=== PATIENT | male | born 1985 | race Caucasian/White ===

== ENCOUNTER → 2021-07-26 16:21 | Outpatient (CLI) | payer OTHER, SELFPAY ==
[2021-07-26 18:44] LABS: COVID19 -Nasal RAPID Negative (Negative)
== END ==
PROVIDERS: Visit Provider Family Medicine Sleep Medicine
DX: Z20.822 Contact with and (suspected) exposure to COVID-19 (principal)
CPT/HCPCS: 87635; C9803

== ENCOUNTER 2021-07-28 07:11 | Day surgery (SDC) | payer OTHER, SELFPAY ==
[2021-07-28] VITALS (9 sets, daily range): BP systolic 119–154; BP diastolic 67–93; PULSE 40–104; RESP 11–19; TEMP 36.2–36.4; O2SAT 95–99; BMI 33.3
--- NOTE | 2021-07-28 | PATH_ITS ---
[facility] Accession Number: [id number] . 01 Material submitted: . PART A: gastrointestinal site - GASTRIC POLYP PART B: esophagus - LOWER THIRD OF ESOPHAGUS . 01 Clinical history: . A: R/O SERRANO'S . 02 Diagnosis: A. Gastric Polyp: Fundic gland polyp. No evidence of Helicobacter organisms on H/E stain. Negative for intestinal metaplasia. Negative for dysplasia or malignancy. . B. Lower Third Esophagus: Squamocolumnar junctional mucosa with no diagnostic abnormality. Negative for intestinal metaplasia. Negative for dysplasia or malignancy. MRV 07/30/2021 1125 Local . 02 Electronically signed: . Xiomara Mosher MD, Pathologist NPI- [id number] . 01 Gross description: . Part A: GASTRIC POLYP: Received in formalin is 2 fragment(s) of negro, soft tissue measuring 0.3 x 0.1 x 0.1 cm submitted entirely in 1 cassette(s) Part B: LOWER THIRD OF ESOPHAGUS: Received in formalin are 2 fragment(s) of negro, soft tissue measuring 0.3 x 0.1 x 0.1 cm to 0.2 x 0.1 x 0.1 cm submitted entirely in 1 cassette(s) /CPE 07/29/2021 1658 Local . 02 Pathologist provided ICD-10: K31.7, K20.90 . 02 CPT . 224801, [id number] Specimen Comment: A courtesy copy of this report has been sent to [phone] Performed at: 01 [facility] [address], [place], [place] [id number] MD Boston Carr MD Phone: [phone] Performed at: 02 [facility] [place] [id number] [place] [id number] MD Patti Armenta MD Phone: [phone]
[2021-07-28] MEDS: SODIUM CHLORIDE 0.9% 1,000 ML 84 ML IV (07:48)
--- NOTE | 2021-07-28 08:14 | PM.HP.1 ---
History of Present Illness History of Present Illness Date Patient Seen: 07/28/21 Time Patient Seen: 08:18 Chief complaint: SDC Narrative: Patient is a very pleasant 36-year-old male who presented for further evaluation of symptoms of gastroesophageal reflux despite PPI therapy. He also describes chronic cough. He states he has had some mild improvement of his symptoms since changing to 40 mg of pantoprazole daily, however he continues to have persistent symptoms. Patient History Medical History (Updated 07/27/21 @ 14:31 by Chio Chaves RN) Cough GERD (gastroesophageal reflux disease) Family & Social History Social History: household members spouse Tobacco & Substance use: Smoking Status Never smoker alcohol intake current alcohol intake frequency a few times a month Substance Use Type does not use Meds Home Medications and Allergies Home Medications Medication Instructions Recorded Confirmed Type pantoprazole 20 mg tablet,delayed 20 - 40 mg PO DAILY 07/27/21 07/28/21 History release Allergies Allergy/AdvReac Type Severity Reaction Status Date / Time No Known Drug Allergies Allergy Verified 07/27/21 14:32 Exam Vital Signs (past 8 hours): - 07/28/21 07:40 Temperature 97.3 F L Pulse Rate 48 L Respiratory Rate 19 Blood Pressure 143/85 H Pulse Oximetry 97 Oxygen Delivery Method Room Air Const General: cooperative, healthy appearing, comfortable, well developed, well groomed and No acute distress Resp Effort & Inspection: normal respiratory effort, able to speak in complete sentences, abnormal respiratory pattern and no audible wheezes Cardio Rate: regular rate Rhythm: regular rhythm Assessment & Plan Assessment & Plan narrative: 1. Chronic cough 2. Symptoms of gastroesophageal reflux despite PPI EGD today, further recommendations to follow Time Spent With Patient Critical Care time: I spent a total of [] minutes of critical care time on this patient's care today; this time is exclusive of procedural time.
--- NOTE | 2021-07-28 08:33 | PM.OP.EGD ---
Operative Date/Time/Diagnoses Date of procedure: 07/28/21 Time of procedure: 08:24 Procedure Notes Procedure in detail: Surgeon: Elvira Kohli DO Procedure: Esophagogastroduodenoscopy with biopsy Preoperative diagnosis: Symptoms of gastroesophageal reflux despite PPI therapy Chronic cough Postoperative diagnosis: [place]-colored mucosa in the lower 3rd of the esophagus biopsy to rule out Escobedo's esophagus Scattered small gastric polyps suspect fundic gland polyps Otherwise unremarkable upper endoscopy Medications: Monitored anesthesia care, see Anesthesia note Preanesthesia Assessment An H and P was performed/updated and the Px?s ASA class is 1. The procedure was discussed in detail with the patient. The potential risks and complications including infection, bleeding, missed lesions, perforation, need for surgery in case of perforation, prolonged hospital stay, and were explained. A brief question and answer period was allotted and once all questions were answered, informed consent was obtained. The patient was brought back to the procedure room and placed on standard monitoring. The patient?s vital signs were monitored continuously throughout the entire procedure. Prior to starting, a timeout was performed to confirm the patient?s identity, allergies, medications, and procedure. Procedure in detail The patient was placed in left lateral decubitus position and a bite block was inserted. The tip of the upper endoscope was placed into the mouth and advanced without difficulty under direct visualization into the esophagus. Esophagus: Z-line 43 cm, 2 tongues of pink salmon-colored mucosa noted biopsied to rule out Escobedo's esophagus Stomach: Scattered small gastric polyps, biopsied Duodenum: Normal-appearing duodenum The patient tolerated the procedure well and will be brought back to the recovery area to be discharged once criteria are met. Complications There were no complications and estimated blood loss was minimal. Recommendations: Resume previous diet Continue outPx medications Follow up pathology results Office follow up as previously scheduled An emergency contact number was given to the patient for any complications related to the procedure
== END 2021-07-28 09:25 | disposition home or self-care (01) ==
LOC: ENDO 07:15
PROVIDERS: PCP Family Medicine; Referring Provider Student in an Organized Health Care Education/Training Program; Visit Provider Student in an Organized Health Care Education/Training Program
PROC: 0DJ08ZZ Inspection of Upper Intestinal Tract, Via Natural or Artificial Opening Endoscopic (ICD-10-PCS; CPT 43235; principal; 2021-07-28 08:30)
DX: K21.9 Gastro-esophageal reflux disease without esophagitis (principal); R05.8 Other specified cough; K31.7 Polyp of stomach and duodenum
CPT/HCPCS: 43239; 93005; 93010; J2704